=== PATIENT | female | born 1995 | race Caucasian/White ===

== ENCOUNTER → 2016-09-25 | Outpatient (CLI) | payer BC ==
--- NOTE | 2016-09-25 10:12 | DIAGNOSTIC IMAGING REPORT ---
NECK ULTRASONOGRAPHY CLINICAL HISTORY: LYMPHADENOPATHY COMPARISON STUDY: CT scan dated 07/11/2016 FINDINGS: Bilateral lymph nodes are visualized within the neck. Several these are at the upper limits of normal in size. The largest the right measures 24 x 7 x 14 mm. The largest in the left measures 25 x 7 x 16 mm. IMPRESSION: Mildly prominent cervical lymph nodes at the upper limits of normal in size. Electronically signed by: Villa Doshi M.D. 09/25/2016 10:10 AM Dictated Date/Time: 09/25/2016 10:08 AM
== END | disposition home or self-care (01) ==
LOC: C.ULTRBC 08:58
PROVIDERS: ATTEND Internal Medicine
DX: R59.1 Generalized enlarged lymph nodes (principal)